=== PATIENT | female | born 1960 | race Hispanic/Latino ===

== ENCOUNTER 2021-11-08 11:20 | Emergency (ER) | payer MEDICARE ==
[2021-11-08] MEDS ORDERED: ONDANSETRON 4 MG ODT TAB PO ONE (13:58)
[2021-11-08] MEDS ORDERED: IBUPROFEN 600 MG TAB PO ONE (13:58)
--- NOTE | 2021-11-08 14:27 | Emergency Department Report ---
ED General Adult HPI - General Chief complaint: Nausea/Vomiting/Diarrhea Stated complaint: NAUSEA/VOMITING/UTI Time Seen by Provider: 11/08/21 13:38 Source: EMS Mode of arrival: Stretcher Limitations: No Limitations - History of Present Illness Initial comments: Patient presents with nausea and vomiting. She does not feel well and has generalized malaise. She reports objective fevers and chills. 5 days ago she was diagnosed with urinary tract infection and started on Macrobid. She states that she has gotten worse. She still having dysuria. She is having bilateral flank pain. She states that she has developed the nausea and vomiting. Patient has had subjective fevers and chills. There is no history of recent travel or trauma. 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 She has had a urinary tract infection previously. She was never told that she had a resistant infection. Her last urinary tract infection was approximately 5 or 6 years ago. Severity scale (0 -10): 8 - Related Data Previous Rx's Medication Instructions Recorded Last Taken Type Ibuprofen [Motrin] 600 mg PO Q8H PRN #20 tablet 11/08/21 Unknown Rx Ondansetron [Zofran ODT TAB] 8 mg PO Q8HR PRN #20 tab.rapdis 11/08/21 Unknown Rx cephALEXin [Keflex] 500 mg PO Q8HR #21 cap 11/08/21 Unknown Rx Allergies Allergy/AdvReac Type Severity Reaction Status Date / Time amoxicillin Allergy Hives Verified 11/08/21 11:24 erythromycin base Allergy Hives Verified 11/08/21 11:24 [From Pediazole] sulfisoxazole Allergy Hives Verified 11/08/21 11:24 [From Pediazole] ED Review of Systems ROS: Stated complaint: NAUSEA/VOMITING/UTI Other details as noted in HPI Comment: All other systems reviewed and negative Constitutional: see HPI Eyes: denies: eye pain ENT: denies: throat pain Respiratory: denies: cough Cardiovascular: denies: chest pain Endocrine: denies: unexplained weight loss Gastrointestinal: as per HPI Genitourinary: as per HPI Musculoskeletal: denies: myalgia Skin: denies: rash Neurological: denies: headache Hematological/Lymphatic: denies: easy bruising ED Past Medical Hx - Past Medical History Hx Hypertension: Yes - Family History Family history: hypertension - Medications Home Medications: Home Medications Medication Instructions Recorded Confirmed Last Taken Type Ibuprofen [Motrin] 600 mg PO Q8H PRN #20 tablet 11/08/21 Unknown Rx Ondansetron [Zofran ODT TAB] 8 mg PO Q8HR PRN #20 tab.rapdis 11/08/21 Unknown Rx cephALEXin [Keflex] 500 mg PO Q8HR #21 cap 11/08/21 Unknown Rx ED Physical Exam - General Limitations: No Limitations, Other (Pulse ox noted and normal) General appearance: alert, in no apparent distress, obese, other (Nontoxic) - Head Head exam: Present: atraumatic, normocephalic - Eye Eye exam: Present: normal appearance, PERRL, EOMI. Absent: scleral icterus - ENT ENT exam: Present: mucous membranes dry, normal external ear exam - Neck Neck exam: Present: normal inspection. Absent: meningismus - Respiratory Respiratory exam: Present: normal lung sounds bilaterally. Absent: respiratory distress - Cardiovascular Cardiovascular Exam: Present: normal rhythm, tachycardia - GI/Abdominal GI/Abdominal exam: Present: soft, tenderness (Suprapubic). Absent: distended, guarding, rebound - Extremities Exam Extremities exam: Present: normal capillary refill - Back Exam Back exam: Present: CVA tenderness (R), CVA tenderness (L) - Neurological Exam Neurological exam: Present: alert, oriented X3, CN II-XII intact. Absent: motor sensory deficit - Psychiatric Psychiatric exam: Present: normal affect, normal mood - Skin Skin exam: Present: warm, dry ED Course Vital Signs 11/08/21 11/08/21 11/08/21 11:23 13:31 14:06 Temperature 103 F H 100.2 F H Pulse Rate 107 H 102 H Respiratory 16 18 Rate Blood Pressure 163/77 [Right] O2 Sat by Pulse 95 Oximetry - Reevaluation(s) Reevaluation #1: 11/08/21 14:27 Labs and medications were ordered. Old records reviewed. Reevaluation #2: 11/08/21 18:21 UA was noted. Patient was discharged ED Medical Decision Making - Lab Data Result diagrams: 11/08/21 14:07 11/08/21 14:07 - Medical Decision Making Patient presented with urinary tract infection symptoms despite being on Macrobid. Clinically, she has pyelonephritis. She was treated symptomatically and referred for outpatient evaluation. She does not have evidence of kidney injury. She does not have significant leukocytosis. I do not believe this represents severe sepsis or septic shock. Blood pressure has been normal. Whether or not she has a resistant infection is unclear. It certainly could be that Macrobid just did not cover her appropriate bacteria. She was seen in a different state and no urine culture is available at this time. Critical Care Time: No Critical care attestation.: If time is entered above; I have spent that time in minutes in the direct care of this critically ill patient, excluding procedure time. ED Disposition Clinical Impression: Acute febrile illness, UTI (urinary tract infection) Nausea & vomiting Qualifiers: Vomiting type: unspecified Qualified Code(s): R11.2 - Nausea with vomiting, unspecified Disposition: 01 HOME / SELF CARE / HOMELESS Is pt being admited?: No Condition: Stable Instructions: Fever, Adult, Urinary Tract Infection, Adult, Nausea and Vomiting, Adult Additional Instructions: Drink water. Return for problems. Follow-up with a regular doctor for recheck. If you are not feeling better in 3 to 4 days, please return for repeat evaluation. Prescriptions: cephALEXin [Keflex] 500 mg PO Q8HR #21 cap Ibuprofen [Motrin] 600 mg PO Q8H PRN #20 tablet PRN Reason: Pain Ondansetron [Zofran ODT TAB] 8 mg PO Q8HR PRN #20 tab.rapdis PRN Reason: Nausea Referrals: PRIMARY CARE, [Primary Care Provider] - 3-5 Days
[2021-11-08 14:38] LABS: Hematocrit 41.4 % (30.3-42.9); Hemoglobin 13.7 gm/dl (10.1-14.3); Mean Corpuscular HGB Conc 33 % (30-34); Mean Corpuscular Volume 85 fl (79-97); Platelet Count 178 K/mm3 (140-440); Red Blood Count 4.89 M/mm3 (3.65-5.03); Red Cell Distribution Width 13.8 % (13.2-15.2)
[2021-11-08 15:16] LABS: Blood Urea Nitrogen 13 mg/dL (7-17); Hemolysis Index 6
[2021-11-08 15:18] LABS: BUN/Creatinine Ratio 19
[2021-11-08 18:03] LABS: Bacteria,Urine 1+ /HPF (Negative); Bilirubin,Urine NEG (Negative); Blood,Urine NEG (Negative); Color,Urine Yellow (Yellow); Mucus,Urine FEW /HPF; Urobilinogen,Urine < 2.0 mg/dL (<2.0)
[2021-11-08] MEDS ORDERED: cephALEXin 500 MG CAP PO ONE (18:18)
[2021-11-08 18:58] VITALS: BP 126/56
== END 2021-11-08 18:58 | disposition home or self-care (01) ==
LOC: ED 11:20
DX: R50.9 Fever, unspecified (principal); N39.0 Urinary tract infection, site not specified; R11.2 Nausea with vomiting, unspecified; I10 Essential (primary) hypertension; Z88.1 Allergy status to other antibiotic agents
CPT/HCPCS: 36415; 80048; 81001; 85027; 99283; J3490; Q0162